=== PATIENT | female | born 1955 | race Caucasian/White ===

== ENCOUNTER 2021-11-06 17:56 | Emergency (ER) | payer SELFPAY ==
[2021-11-06 18:04] VITALS: BP 135/85; PULSE 100; RESP 16; TEMP 36.3; O2SAT 95; BMI 32.1
[2021-11-06 18:30] VITALS: BP 157/100; PULSE 92; O2SAT 95
--- NOTE | 2021-11-06 18:37 | ED.GENADULT ---
HPI - General Adult General Date Seen: 11/06/21 Chief complaint: Alcohol/Intoxication Stated complaint: ETOH Time Seen by Provider: 11/06/21 17:59 Source: patient History of Present Illness HPI narrative: Patient is a 66-year-old woman who presents due to concerns about possible alcohol withdrawal. She is here with a friend who she says is very supportive. She tells me that she had not been drinking until Wednesday, 6 days ago, she stopped drinking a few hours ago. She says that she has had problems with feeling like her heart is racing, shakiness, nausea and maybe passing out when she has gone through withdrawal in the past. She says that she has gone to rehab and detox many times in the past and says that she absolutely refuses to go to detox. She comes in saying that she just needs help getting through her initial detox symptoms. When I tried to clarify exactly what kind of help she wanted, it was a little unclear. We talked about the fact that Detox is typically where people go to manage call withdrawal symptoms in the short term, and that is definitely not what she wants. Right now, she is not particularly symptomatic. Perhaps a little bit shaky. She was not able to tell me exactly why she decided to stop drinking today. She does say that the things that caused her to start drinking last week are no longer in her life. She denies other substances. Denies other symptoms such as abdominal pain, vomiting, fevers, black or bloody stools, chest pain, difficulty breathing. Related Data Allergies Allergy/AdvReac Type Severity Reaction Status Date / Time No Known Drug Allergies Allergy Verified 11/06/21 18:03 Review of Systems Status of ROS: Reports: 10 or more systems reviewed and unremarkable except as noted in History and below [facility] Social History Smoking Status: Former smoker Do you use any of these nicotine containing products: None Second hand tobacco smoke exposure: Yes How often do you have a drink containing alcohol: monthly or less How many standard drinks containing alcohol do you have on a typical day: 10 or more How often do you have six or more drinks on one occasion: Less than monthly AUDIT-C Alcohol total score: 6 Non-prescribed substance use: denies use service: No Exam Narrative: Exam Narrative: Vital signs as noted above. In general, an alert, nontoxic woman. Head: Normocephalic, atraumatic. Eyes: Pupils are equal reactive. Extraocular movements are full. Conjunctivae are normal. No scleral icterus. ENT: Mucous membranes are moist. Throat is normal. Neck: Supple without lymphadenopathy. Heart: Regular rate and rhythm. No murmur or rub. Lungs: Clear bilaterally. No increased work of breathing, crackles or wheezes. Abdomen: Soft and nontender. No organomegaly. Extremities: Well perfused. No edema. No calf tenderness. Pulses intact. Neurologic: Patient is alert and oriented to person and place. Speech is fluent. Face is symmetric. Moves all extremities equally. Affect: Tearful. Skin: Warm and dry. Well perfused. Const: Vital Signs, click to edit/add: Vital Signs - 24 hr 11/06/21 18:04 11/06/21 18:30 Temperature 97.3 F L Pulse Rate [Pulse Oximeter] 100 92 Respiratory Rate 16 Blood Pressure [Ri ght Upper Arm] 135/85 157/100 H Pulse Oximetry 95 95 Oxygen Delivery Me thod Room Air Room Air Documenting provider has reviewed patient's vital signs: yes Course Course Hospital Course: I discussed with her that in terms of management of any acute withdrawal symptoms that she might develop, that detox is really her best option. She adamantly refuses. Her friend asked about admission to the hospital, but in terms of just pure detox, I discussed that admission to the hospital is typically not available as an option. I also do not think it is appropriate to give her benzodiazepines for home use. She lives by herself, and there is no one to help manage those medications. From a safety standpoint, I do not think that is a good option. She is clearly upset that I am not willing to provide more help, in whatever way she had in mind, although again I am not exactly clear on what she wanted as she tells me that she did not want drugs for home. She would like to have something for nausea at home so I will prescribe some Zofran for her. I am giving her a dose of Ativan here which perhaps will help her through this evening. She is not hypertensive or significantly tachycardic here, she is not tremulous, or showing other overt signs of withdrawal, and given that she just up drinking a few hours ago I think that makes sense. I have reassured her that we are always happy to see her back if she is having more difficulty at home. I do not think admission to the hospital is reasonable at this time. Her friend will take her home and be responsible for making sure that she is safe for tonight. Vital Signs Vital signs: Initial Vital Signs Temperature 97.3 F L 11/06/21 18:04 Temperature Source Temporal Artery Scan 11/06/21 18:04 Pulse Rate 100 11/06/21 18:04 Respiratory Rate 16 11/06/21 18:04 Blood Pressure 135/85 11/06/21 18:04 Blood Pressure Mean 101 11/06/21 18:04 Blood Pressure Position Supine 11/06/21 18:04 Pulse Oximetry 95 11/06/21 18:04 Oxygen Delivery Method 11/06/21 18:04 Vital Signs Temperature 97.3 F L 11/06/21 18:04 Pulse Rate 100 11/06/21 18:04 Respiratory Rate 16 11/06/21 18:04 Blood Pressure 135/85 11/06/21 18:04 Pulse Oximetry 95 11/06/21 18:04 Oxygen Delivery Method 11/06/21 18:04 Temperature 97.3 F L 11/06/21 18:04 Pulse Rate 92 11/06/21 18:30 Respiratory Rate 16 11/06/21 18:04 Blood Pressure 157/100 H 11/06/21 18:30 Pulse Oximetry 95 11/06/21 18:30 Oxygen Delivery Method 11/06/21 18:30
[2021-11-06] MEDS: LORazepam 1 MG TABLET PO (18:39)
[2021-11-06 18:51] VITALS: PULSE 87; O2SAT 97
== END 2021-11-06 19:01 | disposition home or self-care (01) ==
PROVIDERS: Emergency Provider Emergency Medicine
DX: F10.130 Alcohol abuse with withdrawal, uncomplicated (principal)
CPT/HCPCS: 99283; 99284; A9270